=== PATIENT | female | born 1960 | race African-American/Black ===

== ENCOUNTER → 2020-08-17 09:35 | Outpatient (CLI) | payer MEDICARE, MEDICAID, SELFPAY ==
--- NOTE | 2020-08-17 09:41 | FL_ITS ---
PROCEDURE: FL BARIUM SWALLOW CLINICAL INDICATION: dysphagia COMPARISON: No exams were available for comparison TECHNIQUE: In the upright position the patient was observed to swallow barium in both the AP and lateral view. The cervical esophagus was examined under fluoroscopy with images obtained. The patient was then placed prone in the right anterior oblique position and was observed to swallow barium with Valsalva technique . FLUOROSCOPY TIME: 39 seconds FINDINGS: There is mild gaseous distention of the esophagus. No obstructing lesions are evident. No mucosal abnormalities. There is a small sliding hiatal hernia. IMPRESSION: Small hiatal hernia otherwise negative barium swallow Dictated by: Terry Tracey MD 08/17/2020 15:18 Terry Tracey MD in [place] 08/17/2020 15:18
== END ==
PROVIDERS: PCP Family Medicine; Visit Provider Otolaryngology
DX: R13.10 Dysphagia, unspecified (principal); R68.2 Dry mouth, unspecified
CPT/HCPCS: 74220

== ENCOUNTER → 2020-11-25 11:06 | Outpatient (CLI) | payer MEDICARE, MEDICAID, SELFPAY ==
--- NOTE | 2020-11-25 11:10 | XR_ITS ---
PROCEDURE: XR FOOT WT BEARING LT 3V CLINICAL INDICATION: hammertoes COMPARISON: No exams were available for comparison FINDINGS: No fracture or dislocation. No lytic or blastic change. There is normal mineralization. Minimal osteoarthritic changes 1st MTP joint. Pes planus with dorsal hypertrophic changes of the navicular and medial cuneiform. There is mild superior subluxation of the navicular at the talonavicular joint. Calcaneal spur and prominent Achilles enthesophyte noted Other findings:None. IMPRESSION: Pes planus with degenerative changes of the midfoot Dictated by: Terry Tracey MD 11/25/2020 12:54 Terry Tracey MD in [place] 11/25/2020 12:54
--- NOTE | 2020-11-25 11:10 | XR_ITS ---
PROCEDURE: XR FOOT WT BEARING RT 3V CLINICAL INDICATION: hammertoes COMPARISON: No exams were available for comparison FINDINGS: There are mild osteoarthritic changes at the 1st MTP joint. Flexion deformity involves the 1st through 5th toes No fracture or dislocation. No lytic or blastic change. There is a small calcaneal spur, prominent posterior talar process versus prominent os trigonum, and Achilles enthesophytes Other findings:None. IMPRESSION: Chronic changes as described above Dictated by: Terry Tracey MD 11/25/2020 12:52 Terry Tracey MD in [place] 11/25/2020 12:52
== END ==
PROVIDERS: PCP Family Medicine; Visit Provider Podiatrist
DX: M20.41 Other hammer toe(s) (acquired), right foot (principal); M20.42 Other hammer toe(s) (acquired), left foot; B35.1 Tinea unguium
CPT/HCPCS: 73630; 87102; 87206; 87220